=== PATIENT | female | born 1960 | race Asian ===

== ENCOUNTER 2024-02-27 09:22 | Inpatient (IN) | payer MEDICARE, OTHER ==
[2024-02-27] VITALS (19 sets, daily range): BP systolic 68–114; BP diastolic 38–81; PULSE 61–85; RESP 18–20; TEMP 97.4; O2SAT 88–99
[~2024-02-27] VITALS: Ht 165.1 cm; Wt 64.9 kg
[2024-02-27 10:18] LABS: BASOPHILS % (AUTO) 0.2 % (0.0-2.0); EOSINOPHILS % (AUTO) 2.1 % (1.0-6.0); HEMATOCRIT 39.2 % (36-46); HEMOGLOBIN 12.6 g/dL (12.0-16.0); LYMPHOCYTES # (AUTO) 2.2 K/uL (1.0-4.8); LYMPHOCYTES % (AUTO) 28.7 % (22.0-44.0); MEAN CORPUSCULAR HEMOGLOBIN 28.9 pg (26.0-34.0); MEAN CORPUSCULAR HGB CONC 32.1 G/dL (31.0-37.0); MEAN CORPUSCULAR VOLUME 90 fL (80-100); MONOCYTES # (AUTO) 0.7 K/uL (0.1-1.0); NEUTROPHILS # (AUTO) 4.5 K/uL (1.8-7.7); PLATELET COUNT (AUTO) 204 K/uL (150-450); RED BLOOD CELL COUNT(AUTO) 4.35 MIL/uL (4.00-5.20); RED CELL DISTRIBUTION WIDTH 16.7 % (11.5-14.5); WHITE BLOOD COUNT (AUTO) 7.6 K/uL (4.5-11.0)
[2024-02-27 10:28] LABS: CALCIUM, TOTAL 8.5 mg/dL (8.8-10.5); CREATININE 1.22 mg/dL (0.60-1.30); POTASSIUM 3.2 mmol/L (3.5-5.1)
[2024-02-27 10:37] LABS: COVID AG,FIA SOURCE NASAL SWAB
[2024-02-27 10:38] LABS: TROPONIN I-HIGH SENSITIVITY 48 ng/L (<51)
[2024-02-27] MEDS: DILTIAZEM HCL 5 MG/ML 5 ML VIAL IVP ONE (11:00)
[2024-02-27] MEDS: DILTIAZEM HCL 125 MG in DEXTROSE 5%-WATER 100 ML IV PRN (11:20)
[2024-02-27 11:53] LABS: INFLUENZA TYPE A NEGATIVE FOR TYPE A (NEGATIVE); INFLUENZA TYPE B NEGATIVE FOR TYPE B (NEGATIVE); SARS-COV2 (COVID) ANTIGEN,FIA Negative (Negative)
[2024-02-27] MEDS: POTASSIUM CHLORIDE 20 MEQ ER TABLET PO ONE (13:05)
[2024-02-27] MEDS ORDERED: POTASSIUM CHL 10 MEQ/WATER 50 ML IV PRN ×2 (13:45→16:00)
[2024-02-27] MEDS ORDERED: POTASSIUM CHLORIDE 20 MEQ ER TABLET PO PRN ×2 (13:45→16:00)
[2024-02-27] MEDS ORDERED: ACETAMINOPHEN 325 MG TABLET PO PRN (13:45)
[2024-02-27] MEDS: DILTIAZEM HCL 125 MG in DEXTROSE 5%-WATER 100 ML IV SCH (13:51)
[2024-02-27] MEDS: CARVEDILOL 6.25 MG TABLET PO SCH (14:04)
[2024-02-27] MEDS: APIXABAN 5 MG TABLET PO SCH (14:04)
[2024-02-27 14:27] LABS: APPEARANCE,URINE HAZY (CLEAR); BILIRUBIN,URINE NEGATIVE (NEGATIVE); COLOR,URINE LIGHT YELLOW (YELLOW); GLUCOSE, URINE (UA) NEGATIVE (NEGATIVE); KETONES,URINE NEGATIVE (NEGATIVE); LEUKOCYTE ESTERASE ,URINE LARGE (NEGATIVE); NITRATE,URINE NEGATIVE (NEGATIVE); OCCULT BLOOD,URINE SMALL (NEGATIVE); PH,URINE 6.5 (5.0-8.0); PROTEIN,URINE 30-70 mg/dL (NEGATIVE); SPECIFIC GRAVITIY, URINE 1.008 (1.003-1.030); UROBILINOGEN,URINE <=1.0 mg/dL (<=1.0)
[2024-02-27 14:53] LABS: BACTERIA,URINE Moderate /HPF (None Seen); RBC,URINE 0-2 /HPF (0-2)
[2024-02-27] MEDS: AMIODARONE HCL 150 MG in DEXTROSE 5%-WATER 97 ML IV ONE (17:30)
[2024-02-27] MEDS: AMIODARONE HCL 360 MG in DEXTROSE 5%-WATER 242.8 ML IV ONE (17:30)
[2024-02-27] MEDS: DIGOXIN 250 MCG/ML 2 ML AMP IVP ONE (18:16)
[2024-02-27] MEDS ORDERED: SODIUM CHLORIDE 0.9% 500 ML IV ONE (18:27)
[2024-02-27] MEDS ORDERED: ONDANSETRON HCL 4 MG/2 ML VIAL IVP PRN (18:30)
[2024-02-27] MEDS: SODIUM CHLORIDE 0.9% 500 ML IV ONE ×2 (18:40→19:13)
[2024-02-27] MEDS: METHIMAZOLE 5 MG TABLET PO SCH (19:46)
[2024-02-27] MEDS: MIDODRINE HCL 5 MG TABLET PO SCH (19:46)
[2024-02-27] MEDS: DOCUSATE SODIUM 100 MG CAPSULE PO SCH (21:00)
[2024-02-27] MEDS: AMIODARONE HCL 540 MG in DEXTROSE 5%-WATER 239.2 ML IV ONE (23:56)
[2024-02-28] VITALS (11 sets, daily range): BP systolic 93–119; BP diastolic 53–88; PULSE 64–108; RESP 18; TEMP 97.5–98.7; O2SAT 92–99
[2024-02-28 07:14] LABS: BASOPHILS % (AUTO) 0.2 % (0.0-2.0); EOSINOPHILS % (AUTO) 1.2 % (1.0-6.0); HEMATOCRIT 35.2 % (36-46); HEMOGLOBIN 11.7 g/dL (12.0-16.0); LYMPHOCYTES # (AUTO) 2.2 K/uL (1.0-4.8); MEAN CORPUSCULAR HEMOGLOBIN 29.8 pg (26.0-34.0); MEAN CORPUSCULAR HGB CONC 33.2 G/dL (31.0-37.0); MEAN CORPUSCULAR VOLUME 90 fL (80-100); MONOCYTES # (AUTO) 0.7 K/uL (0.1-1.0); MONOCYTES % (AUTO) 9.9 % (2.0-9.0); NEUTROPHILS # (AUTO) 4.3 K/uL (1.8-7.7); NEUTROPHILS % (AUTO) 58.7 % (40.0-70.0); PLATELET COUNT (AUTO) 176 K/uL (150-450); RED BLOOD CELL COUNT(AUTO) 3.92 MIL/uL (4.00-5.20); RED CELL DISTRIBUTION WIDTH 16.9 % (11.5-14.5); WHITE BLOOD COUNT (AUTO) 7.2 K/uL (4.5-11.0)
[2024-02-28 07:28] LABS: CALCIUM, TOTAL 8.5 mg/dL (8.8-10.5); CREATININE 1.29 mg/dL (0.60-1.30); FREE T4 (FREE THYROXINE) 2.92 ng/dL (0.76-1.46); MAGNESIUM 2.1 mg/dL (1.80-2.40)
[2024-02-28 07:45] LABS: TROPONIN I-HIGH SENSITIVITY 105 ng/L (<51)
[2024-02-28] MEDS: FAMOTIDINE 20 MG TABLET PO SCH (08:18)
[2024-02-28] MEDS: AMIODARONE HCL 200 MG TABLET PO SCH (08:19)
[2024-02-28] MEDS ORDERED: LOSARTAN POTASSIUM 25 MG TABLET PO SCH (09:00)
[2024-02-28] MEDS ORDERED: SODIUM CHLORIDE 0.9% 500 ML IV ONE (16:07)
[2024-02-28] MEDS: DIGOXIN 125 MCG TABLET PO SCH (16:18)
[2024-02-28] MEDS: CefTRIAXone 1 GM/DEXTROSE 50 ML IV SCH (16:18)
[2024-02-28] MEDS: FUROSEMIDE 20 MG/2 ML VIAL IVP ONE (16:18)
[2024-02-28] MEDS ORDERED: AMIODARONE HCL 750 MG in DEXTROSE 5%-WATER 485 ML IV SCH (18:00)
[2024-02-29 04:34] VITALS: BP 114/68; PULSE 68; RESP 18; TEMP 98.7; O2SAT 97
[2024-02-29 07:45] VITALS: BP 121/70; PULSE 108; RESP 18; TEMP 98.3; O2SAT 93
[2024-02-29 07:52] LABS: CALCIUM, TOTAL 8.8 mg/dL (8.8-10.5); CREATININE 1.12 mg/dL (0.60-1.30); POTASSIUM 3.8 mmol/L (3.5-5.1)
[2024-02-29] MEDS: METOPROLOL SUCCINATE 25 MG ER TABLET PO SCH (08:43)
[2024-02-29 11:58] VITALS: BP 99/56; PULSE 89; RESP 18; TEMP 97.9; O2SAT 94
[2024-02-29 20:45] VITALS: BP 110/68; PULSE 99; RESP 18; TEMP 98.1; O2SAT 91
[2024-03-01 00:10] VITALS: BP 112/71; PULSE 103; RESP 18; TEMP 98; O2SAT 96
[2024-03-01 04:00] VITALS: BP 116/79; PULSE 106; RESP 18; TEMP 97.4; O2SAT 97
[2024-03-01 07:12] LABS: BASOPHILS % (AUTO) 0.5 % (0.0-2.0); CALCIUM, TOTAL 8.7 mg/dL (8.8-10.5); EOSINOPHILS % (AUTO) 2.4 % (1.0-6.0); HEMOGLOBIN 11.9 g/dL (12.0-16.0); LYMPHOCYTES # (AUTO) 1.9 K/uL (1.0-4.8); LYMPHOCYTES % (AUTO) 29.6 % (22.0-44.0); MEAN CORPUSCULAR HEMOGLOBIN 29.6 pg (26.0-34.0); MEAN CORPUSCULAR HGB CONC 33.1 G/dL (31.0-37.0); MEAN CORPUSCULAR VOLUME 90 fL (80-100); MONOCYTES # (AUTO) 0.8 K/uL (0.1-1.0); MONOCYTES % (AUTO) 12.1 % (2.0-9.0); NEUTROPHILS # (AUTO) 3.5 K/uL (1.8-7.7); NEUTROPHILS % (AUTO) 55.4 % (40.0-70.0); PLATELET COUNT (AUTO) 190 K/uL (150-450); RED BLOOD CELL COUNT(AUTO) 4.02 MIL/uL (4.00-5.20); RED CELL DISTRIBUTION WIDTH 16.8 % (11.5-14.5); WHITE BLOOD COUNT (AUTO) 6.4 K/uL (4.5-11.0)
[2024-03-01 07:41] VITALS: BP 110/81; PULSE 90; RESP 18; TEMP 98; O2SAT 94
[2024-03-01 08:03] LABS: TROPONIN I-HIGH SENSITIVITY 37 ng/L (<51)
[2024-03-01] MEDS: METOPROLOL SUCCINATE 25 MG ER TABLET PO SCH (09:02)
[2024-03-01] MEDS ORDERED: METO25XL PO (10:54)
[2024-03-01] MEDS ORDERED: METH-386 PO (10:56)
[2024-03-01] MEDS ORDERED: CIPR250T6 PO (10:56)
[2024-03-01] MEDS ORDERED: APIX5TAB PO (10:59)
[2024-03-01 11:32] VITALS: BP 119/85; PULSE 98; RESP 19; TEMP 98.2; O2SAT 94
== END 2024-03-01 15:15 | disposition home or self-care (01) | DRG 308 ==
LOC: EDUNIT# 09:22 → EDBD 09:29 → EMS 09:29 → EDH 14:08 → 5N 15:17
PROVIDERS: ADMIT Internal Medicine; ATTEND Internal Medicine
DX: I48.91 Unspecified atrial fibrillation (principal); I50.23 Acute on chronic systolic (congestive) heart failure; N39.0 Urinary tract infection, site not specified; R64 Cachexia; E87.6 Hypokalemia; N28.9 Disorder of kidney and ureter, unspecified; I08.1 Rheumatic disorders of both mitral and tricuspid valves; Z20.822 Contact with and (suspected) exposure to COVID-19; E05.90 Thyrotoxicosis, unspecified without thyrotoxic crisis or storm; B96.89 Other specified bacterial agents as the cause of diseases classified elsewhere; I95.9 Hypotension, unspecified; Z68.23 Body mass index [BMI] 23.0-23.9, adult
CPT/HCPCS: 71045; 80048; 81001; 83735; 83880; 84439; 84443; 84484; 85025; 87077; 87086; 87186; 87804; 93005; 93306; 99291; J0282; J0696; J1160; J1940; J2405; J3490; J7040; J7060; 36415-L1; 36415-TC

== ENCOUNTER 2024-04-07 10:26 | Emergency (ER) | payer MEDICARE ==
[~2024-04-07] VITALS: Ht 170.2 cm; Wt 63.6 kg
[~2024-04-07 10:26] MED LIST: APIX5TAB PO; CIPR250T6 PO; METH-386 PO; METO25XL PO
[2024-04-07 10:39] VITALS: TEMP 98.3
[2024-04-07 11:36] LABS: BASOPHILS % (AUTO) 0.5 % (0.0-2.0); EOSINOPHILS % (AUTO) 1.5 % (1.0-6.0); HEMATOCRIT 40.2 % (36-46); HEMOGLOBIN 12.9 g/dL (12.0-16.0); LYMPHOCYTES # (AUTO) 1.3 K/uL (1.0-4.8); LYMPHOCYTES % (AUTO) 26.6 % (22.0-44.0); MEAN CORPUSCULAR HGB CONC 32.1 G/dL (31.0-37.0); MEAN CORPUSCULAR VOLUME 90 fL (80-100); MONOCYTES # (AUTO) 0.4 K/uL (0.1-1.0); MONOCYTES % (AUTO) 9.1 % (2.0-9.0); NEUTROPHILS # (AUTO) 3.1 K/uL (1.8-7.7); NEUTROPHILS % (AUTO) 62.3 % (40.0-70.0); PLATELET COUNT (AUTO) 300 K/uL (150-450); RED BLOOD CELL COUNT(AUTO) 4.45 MIL/uL (4.00-5.20); RED CELL DISTRIBUTION WIDTH 16.9 % (11.5-14.5); WHITE BLOOD COUNT (AUTO) 4.9 K/uL (4.5-11.0)
[2024-04-07 11:53] LABS: ANION GAP 7 mmol/L (8-16); CALCIUM, TOTAL 8.8 mg/dL (8.8-10.5); CARBON DIOXIDE 25 mmol/L (22-29); CHLORIDE 107 mmol/L (98-107); GLOMERULAR FILTR. RATE CALC > 60 mL/min (>60); GLUCOSE,RANDOM 93 mg/dL (70-110); POTASSIUM 3.5 mmol/L (3.5-5.1); SODIUM SERUM 139 mmol/L (136-145); UREA NITROGEN, BLOOD 20 mg/dL (7-18)
[2024-04-07 12:02] LABS: ALANINE AMINOTRANSFERASE 37 U/L (12-78); ALBUMIN 2.6 g/dL (3.4-5.0); ALKALINE PHOSPHATASE 215 U/L (46-116); ASPARTATE AMINOTRANSFERASE 40 U/L (15-37); BILIRUBIN,TOTAL 0.6 mg/dL (0.1-1.0); TROPONIN I-HIGH SENSITIVITY 20 ng/L (<51)
[2024-04-07 12:14] LABS: B-TYPE NATRIURETIC PEPTIDE 252 pg/mL (0-100)
[2024-04-07 12:20] LABS: COVID AG,FIA SOURCE NASAL SWAB
[2024-04-07 12:25] LABS: SARS-COV2 (COVID) ANTIGEN,FIA Negative (Negative)
[2024-04-07 12:42] LABS: INFLUENZA TYPE A NEGATIVE FOR TYPE A (NEGATIVE); INFLUENZA TYPE B NEGATIVE FOR TYPE B (NEGATIVE)
[2024-04-07] MEDS ORDERED: IOHEXOL 350 MG/ML 100 ML VIAL ONE (12:42)
[2024-04-07] MEDS ORDERED: SODIUM CHLORIDE 0.9% 100 ML ONE (12:42)
[2024-04-07 14:45] VITALS: BP 122/71; PULSE 89; RESP 20; O2SAT 97
[2024-04-07 15:08] LABS: FREE T4 (FREE THYROXINE) 2.59 ng/dL (0.76-1.46)
[2024-04-07] MEDS: METOPROLOL SUCCINATE 25 MG ER TABLET PO ONE (16:13)
[2024-04-07 16:29] LABS: THYROID STIMULATING HORMONE < 0.01 uIU/mL (0.36-3.74)
== END 2024-04-07 16:50 | disposition home or self-care (01) ==
LOC: EMS 10:29
DX: E05.90 Thyrotoxicosis, unspecified without thyrotoxic crisis or storm (principal); I48.91 Unspecified atrial fibrillation; R06.02 Shortness of breath; I50.9 Heart failure, unspecified; Z79.01 Long term (current) use of anticoagulants; Z79.899 Other long term (current) drug therapy; Z87.891 Personal history of nicotine dependence; Z20.822 Contact with and (suspected) exposure to COVID-19
CPT/HCPCS: 99284; 71275; 71045; 87426; 80048; 80076; 83880; 84439; 84443; 84484; 85025; 85379; 87804; 36415; 93005; Q9967; J7050